=== PATIENT | male | born 1980 | race African-American/Black ===

== ENCOUNTER 2020-11-17 23:35 | Emergency (ER) | payer SELFPAY ==
[2020-11-18] MEDS ORDERED: Acetaminophen 500 MG Tab PO STA (00:34)
[2020-11-18] MEDS ORDERED: Ibuprofen 800 MG Tab PO STA (00:34)
[2020-11-18] MEDS ORDERED: Amoxicillin 500 MG Cap PO STA (00:36)
--- NOTE | 2020-11-18 00:39 | EDM.PDOC ---
ED HPI GENERAL MEDICAL PROBLEM - General Stated Complaint: SORE THROAT Time Seen by Provider: 11/17/20 23:40 Source of Information: Reports: Patient History Limitations: Reports: No Limitations - History of Present Illness INITIAL COMMENTS - FREE TEXT/NARRATIVE: Cough and sore throat for 2 days. pain in swallowing. There is no fever,chills,. No N/V/D. - Related Data Home Meds: Home Meds Amoxicillin 875 mg PO BID #20 tablet 11/18/20 [Rx] ED ROS ENT - Review of Systems Review Of Systems: See Below Constitutional: Reports: No Symptoms HEENT: Reports: Throat Pain Respiratory: Reports: No Symptoms Cardiovascular: Reports: No Symptoms Endocrine: Reports: No Symptoms GI/Abdominal: Reports: No Symptoms : Reports: No Symptoms Musculoskeletal: Reports: No Symptoms Skin: Reports: No Symptoms Neurological: Reports: No Symptoms Psychiatric: Reports: No Symptoms ED EXAM, ENT - Physical Exam Exam: See Below Exam Limited By: No Limitations General Appearance: Alert, No Apparent Distress Eye Exam: Bilateral Eye: PERRL Ears: Normal External Exam, Normal Canal Nose: Normal Inspection, Normal Mucousa, No Blood Mouth/Throat: Normal Inspection, Other (exudates pahryngeal wall-left) Head: Atraumatic, Normocephalic Neck: Normal Inspection, Supple, Non-Tender Respiratory/Chest: No Respiratory Distress, Lungs Clear, Normal Breath Sounds Cardiovascular: Normal Peripheral Pulses, Regular Rate, Rhythm, No Edema, No Gallop GI/Abdominal: Normal Bowel Sounds, Soft, Non-Tender, No Organomegaly Back: Normal Inspection, Full Range of Motion Extremities: Normal Inspection, Normal Range of Motion, Non-Tender Course - Vital Signs Text/Narrative:: Rapid strep-neg Amox 1000 mg po x1 Tylenol 1000 mg po x1 Ibuprofen 800 mg po x1 - Orders/Labs/Meds Labs: Laboratory Tests 11/17/20 Range/Units 23:55 Group A Strep (PCR) Not detected (NOT DETECT) Meds: Medications Discontinued Medications Generic Name Dose Route Start Last Admin Trade Name Freq PRN Reason Stop Dose Admin Acetaminophen 1,000 mg 11/18/20 00:34 11/18/20 00:45 Acetaminophen 500 Mg Tab PO 11/18/20 00:35 1,000 mg NOW STA Administration Amoxicillin 1,000 mg 11/18/20 00:36 11/18/20 00:45 Amoxicillin 500 Mg Cap PO 11/18/20 00:37 1,000 mg NOW STA Administration Ibuprofen 800 mg 11/18/20 00:34 11/18/20 00:44 Ibuprofen 800 Mg Tab PO 11/18/20 00:35 800 mg NOW STA Administration Departure - Departure Time of Disposition: 00:35 Disposition: Home, Self-Care 01 Condition: Good Clinical Impression: Exudative pharyngitis - Discharge Information Prescriptions: Amoxicillin 875 mg PO BID #20 tablet Instructions: Pharyngitis, [id number] Referrals: PCP,None [Primary Care Provider] - Forms: ED Department Discharge Additional Instructions: Please read discharge instructions on exudative pharyngitis Increase oral fluids Amoxicillin 875 mg twice daily for 10 days Take ibuprofen 800 mg with tylenol 1000 mg every 8 hours as needed for pain follow up as needed
== END 2020-11-18 01:00 | disposition home or self-care (01) ==
LOC: FB.ED 23:35
DX: J02.9 Acute pharyngitis, unspecified (principal)
CPT/HCPCS: 87651-QW; 99283; A9270-GY